=== PATIENT | female | born 1940 | race Caucasian/White ===

== ENCOUNTER 2017-07-18 14:32 | Outpatient (CLI) | payer OTHER ==
[~2017-07-18 14:32] MED LIST: CIPRO500 MG
== END 2017-07-18 14:43 | disposition home or self-care (01) ==
LOC: NUCLEAR 14:32
DX: M81.0 Age-related osteoporosis without current pathological fracture (principal)

== ENCOUNTER 2020-03-10 05:58 | Inpatient (IN) | payer OTHER ==
[~2020-03-10] VITALS: Ht 157.5 cm; Wt 49.9 kg
[2020-03-10] MEDS ORDERED: GLIPIZIDE XL5 MG (06:10)
[2020-03-10] MEDS ORDERED: SYNTHROID75 MCG (06:10)
--- NOTE | 2020-03-10 06:16 | NUR ---
SE RECIBE PTE ALERTA Y ORIENTDA POR BREN. PTE REFIERE PRESENTAR [facility] DES[facility] GEORGE A LAS 10:00PM.
--- NOTE | 2020-03-10 07:45 | NUR ---
PACIENTE ALERTA Y ORIENTADA EN LAS BREN ESFERAS, SE ÁLVARO MUESTRAS DE LENCHO BAJO MEDIDAS ASEPTICAS, SE ADMINISTRAN MEDICAMENTOS STEF ORDEN MEDICA. PACIENTE REHUSA JOAQUIN CONTRASTE POR BOCA. DE IGUAL FORMA REHUSA MUESTRAS DE TYPE AND CROSSMATCH PARA UNIDADES DE PRBC. PACIENTE SE MUESTRA HOSTIL E INDICA DESEA HABLAR CON EL MEDICO DE TURNO EL CUAL SE LE NOTIFICA. SE MANTIENE PACIENTE BAJO OBSERVACION CONTINUA POR CAMBIOS. EN ESPERA DE RESULTADOS DE LABORATORIO. EN COMPANIA DE FAMILIAR. BARANDAS ELEVADAS Y TIMBRE ACCESIBLE.
--- NOTE | 2020-03-10 09:27 | NUR ---
PACIENTE ALERTA Y ORIENTADA EN LAS BRNE ESFERAS, LA MISMA SE MUESTRA HOSTIL E INDICA NO DESEA REALIZARSE CT YA QUE DESEA HABLAR CON . SE LE ORIENTA SOBRE PROCESOS E IMPORTANCIA DE ESTUDIO, SIN EMBARGO PACIENTE CONTINUA REHUSANDO PROCESOS. 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
[2020-03-12] MEDS ORDERED: INTEGRA CAPSUL1 EACH PO (17:44)
== END 2020-03-12 19:10 | disposition home or self-care (01) | DRG 379 ==
LOC: ER 05:58 → SEC-K 14:38 → MEDJ 03-11 10:30 → MEDI 03-11 10:30
PROVIDERS: ADMIT Internal Medicine; ATTEND Internal Medicine
PROC: BW21ZZZ Computerized Tomography (CT Scan) of Abdomen and Pelvis (ICD-10-PCS; principal; 2020-03-10)
DX: K57.31 Diverticulosis of large intestine without perforation or abscess with bleeding (principal); E11.9 Type 2 diabetes mellitus without complications; Z20.828 Contact with and (suspected) exposure to other viral communicable diseases